=== PATIENT | male | born 1980 | race American Indian/Alaskan Native ===

== ENCOUNTER 2017-08-12 08:49 | Emergency (ER) | payer MEDICAID ==
[2017-08-12 09:50] VITALS: BP 116/69
--- NOTE | 2017-08-12 10:48 | XRay Report ---
LEFT KNEE: History: Pain after trauma. The bony architecture is intact without evidence of fracture or dislocation. No significant soft tissue abnormality is seen. IMPRESSION: Normal left knee.
[2017-08-12] MEDS ORDERED: NORCO 5/325 PO ONE (11:36)
--- NOTE | 2017-08-12 11:36 | Emergency Department Report ---
ED Extremity Problem HPI - General Chief complaint: Extremity Injury, Lower Stated complaint: LEFT KNEE PAIN Time Seen by Provider: 08/12/17 11:23 Source: patient, family Mode of arrival: Ambulatory Limitations: Language Barrier - History of Present Illness Initial comments: Patient's father brought him to the hospital report that patient has left knee pain and swelling for about 5 days. His dad reported that patient cannot tell him if he injured his knee. Patient with mental retardation. He said that patient goes to daycare. He says that he's been giving patient Motrin and elevated and ice the area and the swelling has decreased tremendously. He showed me a picture of the patient knee when he first noticed swelling and noted significant swelling to the knee. Patient reports knee pain but he cannot clarify what his pain level is at. I asked them if his left knee is hurting and he said yes. Dad denies patient with any complaints of fever. He said that Motrin made pain better. He also said the patient is walking a lot better compared to 5 days ago. MD Complaint: joint swelling, joint paint Onset/Timin -: days(s) Location: left, knee -: No myalgia, Yes arthralgia, No fever, No associated dyspnea, No associated chest pain Radiation: none, other (patient unable to describe pain) Quality: other (unable to describe quality) Consistency: other (patient unable to describe) Improves with: immobilization, rest Worsens with: weight bearing, walking Associated Symptoms: arthralgias. denies: chest pain, shortness of breath, fever, myalgias, rash - Related Data Previous Rx's Medication Instructions Recorded Last Taken Type Ibuprofen [Motrin] 600 mg PO Q8H PRN #15 tablet 09/07/16 Unknown Rx Ibuprofen [Motrin] 600 mg PO Q8H PRN 4 Days #12 tablet 08/12/17 Unknown Rx Allergies Allergy/AdvReac Type Severity Reaction Status Date / Time No Known Allergies Allergy Verified 08/12/17 09:43 ED Review of Systems ROS: Stated complaint: LEFT KNEE PAIN Other details as noted in HPI This is a 37-year-old male with Down syndrome and he can answer minimal review of system question, his dad answer most questions. Comment: All other systems reviewed and negative Constitutional: no symptoms reported Respiratory: no symptoms reported Cardiovascular: denies: chest pain, palpitations, dyspnea on exertion, edema, syncope Gastrointestinal: denies: abdominal pain, vomiting, diarrhea, constipation Genitourinary: denies: hematuria Musculoskeletal: joint swelling, arthralgia. denies: back pain, myalgia Skin: denies: rash Neurological: denies: headache, weakness, paresthesias, confusion, abnormal gait , vertigo ED Past Medical Hx - Past Medical History Previous Medical History?: Yes Additional medical history: Down syndrome. heart murmur @ - Surgical History Past Surgical History?: No - Family History Family history: no significant - Social History Smoking Status: Never Smoker Substance Use Type: None - Medications Home Medications: Home Medications Medication Instructions Recorded Confirmed Last Taken Type Ibuprofen [Motrin] 600 mg PO Q8H PRN #15 tablet 09/07/16 Unknown Rx Ibuprofen [Motrin] 600 mg PO Q8H PRN 4 Days #12 tablet 08/12/17 Unknown Rx ED Physical Exam - General Limitations: Language Barrier General appearance: alert, in no apparent distress - Head Head exam: Present: atraumatic, normocephalic, normal inspection - Eye Eye exam: Present: normal appearance, PERRL, EOMI. Absent: periorbital swelling , periorbital tenderness Pupils: Present: normal accommodation - ENT ENT exam: Present: normal exam, normal orophraynx, mucous membranes moist - Neck Neck exam: Present: normal inspection, full ROM. Absent: tenderness, meningismus, lymphadenopathy - Respiratory Respiratory exam: Present: normal lung sounds bilaterally. Absent: respiratory distress, chest wall tenderness - Cardiovascular Cardiovascular Exam: Present: regular rate, normal rhythm, normal heart sounds - GI/Abdominal GI/Abdominal exam: Present: soft, normal bowel sounds. Absent: distended, tenderness, guarding, rebound, rigid - Extremities Exam Extremities exam: Present: normal inspection, full ROM, normal capillary refill , joint swelling, other (been, cyanosis or edema. No neurovascular compromise. +2 pulses in all extremities.). Absent: tenderness, pedal edema, calf tenderness - Expanded Lower Extremity Exam Left Hip exam: Present: normal inspection, full ROM, pelvic stability. Absent: tenderness, swelling, abrasion, laceration, ecchymosis, deformity, crepidus, dislocation, erythema, external rotation, internal rotation, shortening Upper Leg exam: Present: normal inspection, full ROM. Absent: tenderness, swelling, abrasion, laceration, ecchymosis, deformity, crepidus, dislocation, erythema Knee exam: Present: normal inspection, full ROM (patient with full range of motion but appears that he has pain when he flexes the left knee but no pain with extension), swelling (while swelling to the left knee anterior), full knee extension. Absent: tenderness, abrasion, laceration, ecchymosis, deformity, crepidus, dislocation, erythema, effusion, pain w/ pronation/supination, posterior draw sign, pain/laxity with valgus, pain/laxity with varus Lower Leg exam: Present: normal inspection, full ROM. Absent: tenderness, swelling, abrasion, laceration, ecchymosis, deformity, crepidus, dislocation, erythema, palpable cord, Pauly's sign Ankle exam: Present: normal inspection, full ROM. Absent: tenderness, swelling , abrasion, laceration, ecchymosis, deformity, crepidus, dislocation, erythema Foot/Toe exam: Present: normal inspection, full ROM. Absent: tenderness, swelling, abrasion, laceration, ecchymosis, deformity, crepidus, dislocation, erythema, amputation, puncture wound, foreign body, calcaneal tenderness, tenderness at base of 5th metatarsal, nail avulsion, subungual hematoma Neuro vascular tendon exam: Present: no vascular compromise. Absent: pulse deficit, abnormal cap refill, motor deficit, sensory deficit, tendon deficit, extremity cold to touch, pallor, abnormal 2-point discrimination, decreased fine /light touch, foot drop, peroneal nerve deficit, significant pain with passive ROM of distal joint Gait: Positive: observed and limited by pain - Back Exam Back exam: Present: normal inspection, full ROM, other (patient ambulated without any difficulties). Absent: tenderness, CVA tenderness (R), CVA tenderness (L), muscle spasm, paraspinal tenderness, vertebral tenderness, rash noted - Expanded Back Exam Expanded Back exam: Absent: saddle anesthesia Back exam: Negative Straight Leg Raising: Left, Right - Neurological Exam Neurological exam: Present: alert, oriented X3, normal gait, reflexes normal. Absent: motor sensory deficit - Psychiatric Psychiatric exam: Present: normal affect, normal mood - Skin Skin exam: Present: warm, dry, intact, normal color. Absent: rash ED Course Vital Signs 08/12/17 09:44 Temperature 99.1 F Pulse Rate 77 Respiratory 16 Rate Blood Pressure 116/69 O2 Sat by Pulse 98 Oximetry - Reevaluation(s) Reevaluation #1: 08/12/17 12:12 Patient with Simba wrap and referred to orthopedic doctor. Patient was given [place] 5/325 one tablet in the emergency room to manage knee pain - Orthopedic Splinting/Casting Injury #1 Side: left Lower Extremity Injury Location: knee Lower Extremity Immobilizer: Simba wrap ED Medical Decision Making - Radiology Data Radiology results: report reviewed X-ray of left knee reveal no fracture or dislocation. No acute findings. No mention of soft tissue swelling or effusion. - Medical Decision Making ED course: Patient with left knee pain and swelling for 5 days which his father report that is getting much better. Patient cannot voice that he injured his knee but father report that his knee was very swollen 5 days ago and he's been given a Motrin and icing area and it's gotten a lot better. Knee exam with no effusion, bony tenderness, soft tissue is swelling and with tenderness to anterior knee nontender to palpate to sides and posterior knee. Patient able to ambulate. He is able to flex and extend his knee but reports pain with flexion. Patient was given [place] 5/325 mg tablet emergency room for knee pain and also Simba wrap to left knee and to follow-up with orthopedic doctor. Discharged home with his father with prescription for Motrin Critical care attestation.: If time is entered above; I have spent that time in minutes in the direct care of this critically ill patient, excluding procedure time. ED Disposition Clinical Impression: Knee pain, left Qualifiers: Chronicity: acute Qualified Code(s): M25.562 - Pain in left knee Strain of left knee Qualifiers: Encounter type: initial encounter Qualified Code(s): S86.912A - Strain of unspecified muscle(s) and tendon(s) at lower leg level, left leg, initial encounter Disposition: TO HOME OR SELFCARE Is pt being admited?: No Does the pt Need Aspirin: No Condition: Stable Instructions: Arthralgia (ED), Knee Pain (ED), Knee Exercises (GEN), RICE Therapy (ED) Additional Instructions: Please follow up with primary care as recommended Increase fluid intake Referred to discharge instruction in Rice therapy. Follow-up with orthopedic doctor as discussed. Prescriptions: Ibuprofen [Motrin] 600 mg PO Q8H PRN 4 Days #12 tablet PRN Reason: Pain Referrals: ZABRINA EWING MD [Staff Physician] - 2-3 Days Forms: Accompanied Note
== END 2017-08-12 12:30 | disposition home or self-care (01) ==
LOC: ED 08:49
DX: S86.912A Strain of unspecified muscle(s) and tendon(s) at lower leg level, left leg, initial encounter (principal); X50.1XXA Overexertion from prolonged static or awkward postures, initial encounter; Y93.89 Activity, other specified; Y92.89 Other specified places as the place of occurrence of the external cause; Y99.8 Other external cause status
CPT/HCPCS: 99284

== ENCOUNTER 2018-10-06 15:40 | Emergency (ER) | payer MEDICAID ==
[2018-10-06 15:50] VITALS: BP 131/77
--- NOTE | 2018-10-06 16:25 | Emergency Department Report ---
ED Recheck HPI - General Chief Complaint: Eye Problems Stated Complaint: EYE PROBLEMS Source: family Mode of arrival: Wheelchair Limitations: No Limitations - History of Present Illness Initial Comments: 38 YO AA MALE WHO COMES IN WITH BROTHER. PT HAS DOWNS AND SEVERE MR. BROTHER, THE CAREGIVER, THINGS THE PT IS HAVING TROUBLE SEEING AND WANTS AN EYE EXAM. HE CAME HERE IN HOPES OF US DOING ONE. - Related Data Previous Rx's Medication Instructions Recorded Last Taken Type Ibuprofen [Motrin] 600 mg PO Q8H PRN #15 tablet 09/07/16 Unknown Rx Ibuprofen [Motrin] 600 mg PO Q8H PRN 4 Days #12 tablet 08/12/17 Unknown Rx Ibuprofen 800 mg PO TID PRN #30 tablet 07/19/18 Unknown Rx predniSONE [Deltasone] 40 mg PO QDAY 5 Days #10 tab 07/19/18 Unknown Rx Allergies Allergy/AdvReac Type Severity Reaction Status Date / Time No Known Allergies Allergy Verified 10/06/18 15:48 ED Review of Systems ROS: Stated complaint: EYE PROBLEMS Other details as noted in HPI Comment: Unobtainable due to pts medical conditions ED Past Medical Hx - Past Medical History Additional medical history: Down syndrome. heart murmur @ - Social History Smoking Status: Never Smoker Substance Use Type: None - Medications Home Medications: Home Medications Medication Instructions Recorded Confirmed Last Taken Type Ibuprofen [Motrin] 600 mg PO Q8H PRN #15 tablet 09/07/16 Unknown Rx Ibuprofen [Motrin] 600 mg PO Q8H PRN 4 Days #12 tablet 08/12/17 Unknown Rx Ibuprofen 800 mg PO TID PRN #30 tablet 07/19/18 Unknown Rx predniSONE [Deltasone] 40 mg PO QDAY 5 Days #10 tab 07/19/18 Unknown Rx ED Physical Exam - General Limitations: No Limitations General appearance: alert - Eye Eye exam: Present: PERRL, EOMI - ENT ENT exam: Present: mucous membranes moist - Respiratory Respiratory exam: Present: normal lung sounds bilaterally - Cardiovascular Cardiovascular Exam: Present: regular rate, systolic murmur - GI/Abdominal GI/Abdominal exam: Present: soft, normal bowel sounds - Rectal Rectal exam: Present: deferred - Neurological Exam Neurological exam: Present: alert ED Course Vital Signs 10/06/18 15:48 Temperature 97.7 F Pulse Rate 91 H Respiratory 20 Rate Blood Pressure 131/77 O2 Sat by Pulse 98 Oximetry ED Recheck MDM - Medical Decision Making LONG DISCUSSION WITH BROTHER RELATED TO HIS CONCERNS. I'M NOT SURE IF THERE IS A VISION ISSUE OR BEHAVIOR ISSUE PT SEES ME AND TAKES OBJECTS FROM MY HANDS. DUE TO HIS MR WE CAN NOT DO A [facility] OR OTHER RELIABLE EYE EXAM.. THE PT HAS AN EYE APPNT THURS ADDITIONAL REFERRALS GIVEN THE PT IS WELL CARED FOR AND WELL NOURISHED Critical care attestation.: If time is entered above; I have spent that time in minutes in the direct care of this critically ill patient, excluding procedure time. ED Disposition Clinical Impression: Down's syndrome Disposition: DC-01 TO HOME OR SELFCARE Is pt being admited?: No Does the pt Need Aspirin: No Condition: Stable Additional Instructions: 1. EYE DOCTOR 2. PRIMARY CARE FOR PSYCHIATRIC CARE FOR MENTALLY HANDICAPPED PATIENT Referrals: NITIN ROBERT MD [Primary Care Provider] - 3-5 Days [facility] [Outside] - 3-5 Days SUJATA THOMAS MD [Staff Physician] - 3-5 Days Time of Disposition: 16:25
== END 2018-10-06 16:49 | disposition left against medical advice (07) ==
LOC: ED 15:40
DX: Q90.9 Down syndrome, unspecified (principal)
CPT/HCPCS: 99281

== ENCOUNTER 2018-12-06 08:09 | Emergency (ER) | payer MEDICAID ==
[2018-12-06 09:00] VITALS: BP 124/74
--- NOTE | 2018-12-06 09:58 | Emergency Department Report ---
ED Lower Extremity HPI - General Chief Complaint: Extremity Injury, Lower Stated Complaint: (L) KNEE SWOLLEN Time Seen by Provider: 12/06/18 09:58 Source: family Mode of arrival: Wheelchair Limitations: Altered Mental Status - History of Present Illness Initial Comments: This is a 38-year-old male brought by parents nontoxic, well nourished in appearance, no acute signs of distress presents to the ED with c/o of left knee pain 1 day. Mother stated that patient was holding on top his knee before going to bed. Patient is autistic. Mother denies the mechanism of trauma or injuries. Patient and mother denies any joint swelling or joint redness. Mother denies decreased range of motion. Mother stated has decreased gait due to pain. Mother denies any allergies. MD Complaint: knee injury -: days(s) (1) Injury: Knee: Left Severity: mild Improves With: nothing Worsens With: nothing Associated Symptoms: swelling, able to partially bear weight, ambulatory. denies: snap/pop sensation, numbness, tingling, unable to bear weight - Related Data Previous Rx's Medication Instructions Recorded Last Taken Type Ibuprofen [Motrin] 600 mg PO Q8H PRN #15 tablet 09/07/16 Unknown Rx Ibuprofen [Motrin] 600 mg PO Q8H PRN 4 Days #12 tablet 08/12/17 Unknown Rx Ibuprofen 800 mg PO TID PRN #30 tablet 07/19/18 Unknown Rx predniSONE [Deltasone] 40 mg PO QDAY 5 Days #10 tab 07/19/18 Unknown Rx Ibuprofen [Motrin] 600 mg PO Q8H PRN #20 tablet 12/06/18 Unknown Rx Allergies Allergy/AdvReac Type Severity Reaction Status Date / Time No Known Allergies Allergy Verified 10/06/18 15:48 ED Review of Systems ROS: Stated complaint: (L) KNEE SWOLLEN Other details as noted in HPI ROS helped with mother Constitutional: denies: chills, fever Eyes: denies: eye pain, eye discharge, vision change ENT: denies: ear pain, throat pain Respiratory: denies: cough, shortness of breath, wheezing Cardiovascular: denies: chest pain, palpitations Endocrine: no symptoms reported Gastrointestinal: denies: abdominal pain, nausea, vomiting, diarrhea Genitourinary: denies: urgency, dysuria Musculoskeletal: denies: back pain, joint swelling, arthralgia Skin: denies: rash, lesions Neurological: denies: headache, weakness, paresthesias Psychiatric: denies: anxiety, depression Hematological/Lymphatic: denies: easy bleeding, easy bruising ED Past Medical Hx - Past Medical History Previous Medical History?: Yes Additional medical history: Down syndrome. heart murmur @ - Surgical History Past Surgical History?: No - Social History Smoking Status: Never Smoker Substance Use Type: None - Medications Home Medications: Home Medications Medication Instructions Recorded Confirmed Last Taken Type Ibuprofen [Motrin] 600 mg PO Q8H PRN #15 tablet 09/07/16 Unknown Rx Ibuprofen [Motrin] 600 mg PO Q8H PRN 4 Days #12 tablet 08/12/17 Unknown Rx Ibuprofen 800 mg PO TID PRN #30 tablet 07/19/18 Unknown Rx predniSONE [Deltasone] 40 mg PO QDAY 5 Days #10 tab 07/19/18 Unknown Rx Ibuprofen [Motrin] 600 mg PO Q8H PRN #20 tablet 12/06/18 Unknown Rx ED Physical Exam - General Limitations: Altered Mental Status General appearance: alert, in no apparent distress - Head Head exam: Present: atraumatic, normocephalic - Eye Eye exam: Present: normal appearance - Neck Neck exam: Present: normal inspection, full ROM - Rectal Rectal exam: Present: deferred - Extremities Exam Extremities exam: Present: normal inspection, full ROM, tenderness, normal capillary refill. Absent: joint swelling - Expanded Lower Extremity Exam Left Hip exam: Present: normal inspection, full ROM. Absent: tenderness Upper Leg exam: Present: normal inspection, full ROM. Absent: tenderness, swelling Knee exam: Present: normal inspection, full ROM, tenderness, swelling, ecchymosis, full knee extension. Absent: abrasion, laceration, deformity, crepidus, dislocation, erythema, effusion, pain w/ pronation/supination, posterior draw sign, pain/laxity with valgus, pain/laxity with varus Lower Leg exam: Present: normal inspection, full ROM. Absent: tenderness, swelling Ankle exam: Present: normal inspection, full ROM. Absent: tenderness, swelling Foot/Toe exam: Present: normal inspection, full ROM. Absent: tenderness, swelling Neuro vascular tendon exam: Present: no vascular compromise Gait: Positive: observed and limited by pain - Back Exam Back exam: Present: normal inspection, full ROM. Absent: tenderness, CVA tenderness (R), CVA tenderness (L), muscle spasm, paraspinal tenderness, vertebral tenderness, rash noted - Neurological Exam Neurological exam: Present: alert, oriented X3 - Psychiatric Psychiatric exam: Present: normal affect, normal mood - Skin Skin exam: Present: warm, dry, intact, normal color. Absent: rash ED Course Vital Signs 12/06/18 08:57 Temperature 99 F Pulse Rate 93 H Respiratory 12 Rate Blood Pressure 124/74 O2 Sat by Pulse 99 Oximetry - Reevaluation(s) Reevaluation #1: 12/06/18 10:42 Patient is speaking in full sentences with no signs of distress noted. ED Lower Extremity MDM - Medical Decision Making This is a 38-year-old male that presents with left knee strain. Patient is stable and was examined by me. I referred patient to an orthopedic doctor for further evaluation for possible MRI. X-ray has been obtained and dictated by the radiologist. Patient is notified of the x-ray report with noted by the patient. Patient does have normal gait with no tenderness and no joint swelling. No ecchymosis. no joint redness or swelling. Not warm to touch. No signs of cellulites present. Patient received a knee immobilize. Patient was instructed to RICE therapy. Patient received Motrin for pain. Patient is discharged with Motrin. At time of discharge, the patient does not seem toxic or ill in appearance. No acute signs of distress noted. Patient agrees to discharge treatment plan of care. No further questions noted by the patient. Critical care attestation.: If time is entered above; I have spent that time in minutes in the direct care of this critically ill patient, excluding procedure time. ED Disposition Clinical Impression: Strain of left knee Qualifiers: Encounter type: initial encounter Qualified Code(s): S86.912A - Strain of unspecified muscle(s) and tendon(s) at lower leg level, left leg, initial encounter Disposition: TO HOME OR SELFCARE Is pt being admited?: No Does the pt Need Aspirin: No Condition: Stable Instructions: Knee Pain (ED), Knee Immobilizer (ED), RICE Therapy (ED) Additional Instructions: Follow-up with a orthopedic doctor in 3-5 days or if symptoms worsen and continue return to emergency room as soon as possible. Prescriptions: Ibuprofen [Motrin] 600 mg PO Q8H PRN #20 tablet PRN Reason: Pain Referrals: ASIF SINGH MD [Primary Care Provider] - 3-5 Days PRIMARY [facility] [Referring] - 3-5 Days ZABRINA EWING MD [Staff Physician] - 3-5 Days [facility] [Outside] - 3-5 Days
[2018-12-06] MEDS ORDERED: IBUPROFEN PO ONE (10:21)
--- NOTE | 2018-12-06 11:16 | XRay Report ---
PROCEDURE: XR KNEE 3V LT TECHNIQUE: 3 views of the left knee. HISTORY: knee pain/swelling COMPARISONS: None. FINDINGS: No fracture. No dislocation. Normal mineralization. No soft tissue swelling. There is a large left knee joint effusion. No bony erosion or periosteal reaction. No degenerative ch rene. No radiopaque foreign body. IMPRESSION: Large left knee joint effusion. This document is electronically signed by Isela Pozo., December 06 2018 11:13:29 AM ET
== END 2018-12-06 11:30 | disposition home or self-care (01) ==
LOC: ED 08:09
DX: S86.912A Strain of unspecified muscle(s) and tendon(s) at lower leg level, left leg, initial encounter (principal); Q90.9 Down syndrome, unspecified; X58.XXXA Exposure to other specified factors, initial encounter; Y93.89 Activity, other specified; Y92.89 Other specified places as the place of occurrence of the external cause; Y99.8 Other external cause status

== ENCOUNTER 2019-10-21 11:04 | Day surgery (SDC) | payer MEDICAID ==
[~2019-10-21 11:04] MED LIST: APRACLONIDINE 1% OPHTH SOLN DROPERETTE ONE; PHENYLEPHRINE 10% OPHTH SOLN 5 ML ONE; TROPICAMIDE 1% OPHTH SOLN 3 ML ONE
[2019-10-21] MEDS ORDERED: PHENYLEPHRINE 10% OPHTH SOLN 5 ML OS ONE (11:38)
[2019-10-21] MEDS ORDERED: APRACLONIDINE 1% OPHTH SOLN DROPERETTE OS ONE (11:38)
[2019-10-21] MEDS ORDERED: TROPICAMIDE 1% OPHTH SOLN 3 ML OS ONE (11:38)
[2019-10-21 12:11] VITALS: BP 139/88
== END 2019-10-21 11:05 | disposition home or self-care (01) ==
LOC: OR 11:04
PROVIDERS: ATTEND Specialist
DX: H25.89 Other age-related cataract (principal); Z79.899 Other long term (current) drug therapy; Z98.890 Other specified postprocedural states

== ENCOUNTER 2019-10-22 07:15 | Emergency (ER) | payer MEDICAID ==
[2019-10-22 07:48] VITALS: BP 140/82
--- NOTE | 2019-10-22 09:18 | Emergency Department Report ---
ED ENT HPI - General Chief complaint: Dental/Oral Stated complaint: MOUTH SWOLLEN Time Seen by Provider: 10/22/19 08:57 Source: patient, family Mode of arrival: Ambulatory Limitations: No Limitations - History of Present Illness Initial comments: history provided by patients mother. Patient is a 39-year-old male brought in by his mother with complaints of right lower sided jaw swelling that began this morning. The mother states that he has had right lower dental pain for a couple of days. She states that he she gave him a gel ibuprofen yesterday and that he chewed it. She states that he has not seen a dentist in approximately one year. She states that he has an appointment with a dentist on November 09. She denies any fever, nausea, vomiting, diarrhea. She states he is tolerating by mouth intake. He has a past medical history of Down syndrome and heart surgery at . No allergies to medications. - Related Data Previous Rx's Medication Instructions Recorded Last Taken Type Clindamycin [Clindamycin CAP] 450 mg PO TID 7 Days #63 capsule 10/22/19 Unknown Rx Ibuprofen Oral Liqd [Motrin Oral 600 mg PO Q8HR PRN #1 bottle 10/22/19 Unknown Rx Liq 100 mg/5 ml] Allergies Allergy/AdvReac Type Severity Reaction Status Date / Time No Known Allergies Allergy Verified 10/21/19 12:32 ED Dental HPI - General Chief complaint: Dental/Oral Stated complaint: MOUTH SWOLLEN Time Seen by Provider: 10/22/19 08:57 Source: patient Mode of arrival: Ambulatory Limitations: No Limitations - Related Data Previous Rx's Medication Instructions Recorded Last Taken Type Clindamycin [Clindamycin CAP] 450 mg PO TID 7 Days #63 capsule 10/22/19 Unknown Rx Ibuprofen Oral Liqd [Motrin Oral 600 mg PO Q8HR PRN #1 bottle 10/22/19 Unknown Rx Liq 100 mg/5 ml] Allergies Allergy/AdvReac Type Severity Reaction Status Date / Time No Known Allergies Allergy Verified 10/21/19 12:32 ED Review of Systems ROS: Stated complaint: MOUTH SWOLLEN Other details as noted in HPI Comment: All other systems reviewed and negative ED Past Medical Hx - Past Medical History Previous Medical History?: Yes Additional medical history: Down syndrome. heart murmur @ - Surgical History Past Surgical History?: Yes Hx Open Heart Surgery: Yes (As ? type) - Social History Smoking Status: Never Smoker Substance Use Type: None - Medications Home Medications: Home Medications Medication Instructions Recorded Confirmed Last Taken Type Clindamycin [Clindamycin CAP] 450 mg PO TID 7 Days #63 capsule 10/22/19 Unknown Rx Ibuprofen Oral Liqd [Motrin Oral 600 mg PO Q8HR PRN #1 bottle 10/22/19 Unknown Rx Liq 100 mg/5 ml] ED Physical Exam - General Limitations: No Limitations General appearance: alert, in no apparent distress - Head Head exam: Present: atraumatic, normocephalic - Eye Eye exam: Present: normal appearance - ENT ENT exam: Present: normal orophraynx, mucous membranes moist, other (area of edema and induration present to the inside of the right lower jaw, there is an impacted molar present in the back right lower side, uvula is midline, no uvular deviation or edema, right lower sided facial edema, no ttp under the tongue, tolerating secretions without difficulty) - Respiratory Respiratory exam: Present: normal lung sounds bilaterally. Absent: respiratory distress, wheezes, rales, rhonchi, stridor, chest wall tenderness, accessory muscle use, decreased breath sounds, prolonged expiratory - Cardiovascular Cardiovascular Exam: Present: regular rate, normal rhythm, normal heart sounds. Absent: systolic murmur, diastolic murmur, rubs, gallop - Neurological Exam Neurological exam: Present: alert - Psychiatric Psychiatric exam: Present: normal affect, normal mood - Skin Skin exam: Present: warm, dry, intact ED Course Vital Signs 10/22/19 07:18 Temperature 98.0 F Pulse Rate 91 H Respiratory 16 Rate Blood Pressure 140/82 O2 Sat by Pulse 96 Oximetry ED Medical Decision Making - Medical Decision Making history provided by patients mother. Patient is a 39-year-old male brought in by his mother with complaints of right lower sided jaw swelling that began this morning. The mother states that he has had right lower dental pain for a couple of days. She states that he she gave him a gel ibuprofen yesterday and that he chewed it. She states that he has not seen a dentist in approximately one year. She states that he has an appointment with a dentist on November 09. She denies any fever, nausea, vomiting, diarrhea. She states he is tolerating by mouth intake. He has a past medical history of Down syndrome and heart surgery at . No allergies to medications. VSS. on exam: area of edema and induration present to the inside of the right lower jaw, there is an impacted molar present in the back right lower side, uvula is midline, no uvular deviation or edema, right lower sided facial edema, no ttp under the tongue, tolerating secretions without difficulty. Examination consistent with dental abscess and facial cellulitis. No signs of Seth's or peritonsillar abscess. Given prescription for clindamycin and ibuprofen. advised mother Please give medication as prescribed. Follow up with a dentist in the next 3-5 days. Return to the emergency room for any new or worsening symptoms. - Differential Diagnosis dental abscess, sialodenitis, peritonsillar abscess, ludwigs, dental pain Critical care attestation.: If time is entered above; I have spent that time in minutes in the direct care of this critically ill patient, excluding procedure time. ED Disposition Clinical Impression: Dental abscess, Facial cellulitis Disposition: TO HOME OR SELFCARE Is pt being admited?: No Does the pt Need Aspirin: No Condition: Stable Instructions: Dental Abscess (ED) Additional Instructions: Please give medication as prescribed. Follow up with a dentist in the next 3-5 days. Return to the emergency room for any new or worsening symptoms. Prescriptions: Clindamycin [Clindamycin CAP] 450 mg PO TID 7 Days #63 capsule Ibuprofen Oral Liqd [Motrin Oral Liq 100 mg/5 ml] 600 mg PO Q8HR PRN #1 bottle PRN Reason: pain Referrals: your, dentist [Other] - 3-5 Days Time of Disposition: 09:19 Print Language: [id number]
== END 2019-10-22 09:34 | disposition home or self-care (01) ==
LOC: ED 07:15
DX: K04.7 Periapical abscess without sinus (principal); L03.211 Cellulitis of face; Z98.890 Other specified postprocedural states; Z79.1 Long term (current) use of non-steroidal anti-inflammatories (NSAID); Z79.899 Other long term (current) drug therapy
CPT/HCPCS: 99282

== ENCOUNTER 2019-10-28 10:48 | Day surgery (SDC) | payer MEDICAID ==
[2019-10-28 11:12] VITALS: BP 157/58
[2019-10-28] MEDS ORDERED: TROPICAMIDE 1% OPHTH SOLN 3 ML OD ONE (11:26)
[2019-10-28] MEDS ORDERED: PHENYLEPHRINE 10% OPHTH SOLN 5 ML OD ONE (11:26)
[2019-10-28] MEDS ORDERED: APRACLONIDINE 1% OPHTH SOLN DROPERETTE OD ONE (11:26)
== END 2019-10-28 10:49 | disposition home or self-care (01) ==
LOC: OR 10:48
PROVIDERS: ATTEND Specialist
DX: H25.89 Other age-related cataract (principal); I50.9 Heart failure, unspecified; Z79.899 Other long term (current) drug therapy; Z98.890 Other specified postprocedural states